=== PATIENT | female | born 1985 | race Caucasian/White ===

== ENCOUNTER 2017-10-21 11:49 | Emergency (ER) | payer OTHER ==
[2017-10-21 12:04] VITALS: BP 131/110
--- NOTE | 2017-10-21 12:35 | EDM.PDOC ---
ED HPI GENERAL MEDICAL PROBLEM - General Chief Complaint: Cardiovascular Problem Stated Complaint: HEART PALPITATIONS SENT BY [facility] Time Seen by Provider: 10/21/17 12:30 Source of Information: Reports: Patient History Limitations: Reports: No Limitations - History of Present Illness INITIAL COMMENTS - FREE TEXT/NARRATIVE: 32-year-old female presents the ED with recurrent palpitations over the last week. She is aware fluttering in her chest normal to the point that it almost hurts in her central chest. Does not make her cough or lightheaded or dizzy. Never had this before. She estimates that she is about 5-6 weeks gestation. Last menstrual period was around September 13. She will be 3 para 2 with 2 normal vaginal deliveries. Denies cough or sputum production. No recent illnesses with influenza etc. No known problems with her thyroid gland. Palpitations have occurred at rest as well as activity. Onset: Gradual (Off and on intermittently over the last week to 10 days.), Other (Palpitations were quite significant last and again this morning.) Duration: Day(s):, Intermittent, Waxing/Waning Location: Reports: Chest (Last week or more. Chest fluttering feeling) Quality: Reports: Ache Severity: Mild (Occasional mild central chest aching.) Improves with: Reports: None Worsens with: Reports: None Context: Reports: Other. Denies: Activity, Exercise, Lifting, Sick Contact, Trauma Associated Symptoms: Denies: Confusion, Chest Pain (First trimester estimated to be 5-6 weeks gestation.), Cough, cough w sputum, Diaphoresis, Fever /Chills, Headaches, Loss of Appetite, Malaise, Nausea/Vomiting, Rash, Seizure, Shortness of Breath, Syncope, Weakness Treatments [employer]IOR [employer]: Reports: Other (see below) (None.) - Related Data Allergies Allergy/AdvReac Type Severity Reaction Status Date / Time No Known Allergies Allergy Verified 10/21/17 12:04 Home Meds: Home Meds Vit No.130/Iron/FA [ Tablet] 1 each PO DAILY #100 tablet [Rx] Past Medical History - Past Health History Medical/Surgical History: Denies Medical/Surgical History : 3 Para: 2 LMP (Approximate): - Past Surgical History Other HEENT Surgeries/Procedures: wisdom teeth Social & Family History - Tobacco Use Smoking Status *Q: Never Smoker Second Hand Smoke Exposure: No - Recreational Drug Use Recreational Drug Use: No Drug Use in Last 12 Months: No - Living Situation & Occupation Living situation: Reports: , with Significant Other Occupation: Employed ED ROS GENERAL - Review of Systems Review Of Systems: See Below Constitutional: Reports: Fatigue. Denies: Fever, Chills, Malaise, Weakness, Decreased Appetite (Little fatigue due to ), Weight Loss HEENT: Reports: No Symptoms. Denies: Vision Change Respiratory: Reports: No Symptoms. Denies: Wheezing, Pleuritic Chest Pain, Cough, Sputum, Hemoptysis, Other Cardiovascular: Reports: Palpitations Endocrine: Reports: Fatigue (See history of present illness) GI/Abdominal: Reports: No Symptoms : Reports: Frequency Musculoskeletal: Reports: No Symptoms Skin: Reports: No Symptoms Neurological: Reports: No Symptoms Psychiatric: Reports: No Symptoms Hematologic/Lymphatic: Reports: No Symptoms Immunologic: Reports: No Symptoms ED EXAM, GENERAL - Physical Exam Exam: See Below Exam Limited By: No Limitations General Appearance: Alert, WD/WN, No Apparent Distress Eye Exam: Bilateral Eye: Normal Inspection Throat/Mouth: Normal Inspection, Normal Lips, Normal Teeth, Normal Gums, Normal Oropharynx. No: Dysphagia Neck: Normal Inspection, Supple, Non-Tender, Full Range of Motion. No: Carotid Bruit, Lymphadenopathy (L), Lymphadenopathy (R), Thyromegaly Respiratory/Chest: No Respiratory Distress, Lungs Clear, Normal Breath Sounds, No Accessory Muscle Use, Chest Non-Tender Cardiovascular: Regular Rate, Rhythm, No Edema, No Murmur, No Rub, Other (62 in sinus.) Peripheral Pulses: 3+: Carotid (L), Carotid (R), Posterior Tibial (L), Posterior Tibial (R), Dorsalis Pedis (L), Dorsalis Pedis (R) GI/Abdominal: Normal Bowel Sounds, Soft, Non-Tender, No Organomegaly, No Abnormal Bruit, No Mass, Pelvis Stable, Other (No surgical scars) Neurological: Alert, Oriented, CN II-XII Intact, Normal Cognition Psychiatric: Normal Affect, Normal Mood Skin Exam: Warm, Dry, Intact, Normal Color, No Rash EKG INTERPRETATION EKG Date: 10/21/17 Time: 12:00 Rhythm: NSR (NV interval is slightly shortened.) Rate (Beats/Min): 88 [place]: LAD-Left [place] Deviation (Mild left axis deviation of -17.) P-Wave: Present QRS: Other (Early R-wave transition. Questionable delta wave in lead V5.) ST-T: Other QT: Normal EKG Interpretation Comments: Abnormal ECG Baseline irregularity in V5 and V6 therefore they were not utilized for interpretation. Course - Vital Signs Last Recorded V/S: Last Vital Signs Temp 36.3 C 10/21/17 11:58 Pulse 80 10/21/17 11:58 Resp 18 10/21/17 11:58 BP 131/110 H 10/21/17 11:58 Pulse Ox 100 10/21/17 11:58 Orthostatic Blood Pressure [ 112/61 Sitting] Orthostatic Blood Pressure [ 108/65 Standing] Orthostatic Blood Pressure [ 105/58 Supine] - Orders/Labs/Meds Orders: Active Orders 24 hr Category Date Time Status Orthostatic Vital Signs [RC] ASDIRECTED Care 10/21/17 12:30 Active Chest 1V Frontal [CR] Stat Exams 10/21/17 12:35 Taken CBC WITH MANUAL DIFF [HEME] Stat Lab 10/21/17 12:30 Results Sodium Chloride 0.9% [Normal Saline] 1,000 ml Med 10/21/17 12:45 Active IV ASDIRECTED Medication Orders Sodium Chloride (Normal Saline) 1,000 mls @ 250 mls/hr IV ASDIRECTED NOEL Last Admin: 10/21/17 13:04 Dose: 250 mls/hr Labs: Laboratory Tests 10/21/17 10/21/17 10/21/17 Range/Units 12:30 12:30 12:30 WBC 8.67 (3.98-10.04) K/mm3 RBC 4.22 (3.98-5.22) M/mm3 Hgb 12.0 (11.2-15.7) gm/L Hct 36.1 (34.1-44.9) % MCV 85.5 (79.4-94.8) fl MCH 28.4 (25.6-32.2) pg MCHC 33.2 (32.2-35.5) g/dl RDW Std Deviation 39.8 (36.4-46.3) fL Plt Count 297 (182-369) K/mm3 MPV 10.1 (9.4-12.3) fl Sodium 140 (136-145) mEq/L Potassium 3.4 L (3.5-5.1) mEq/L Chloride 105 (98-107) mEq/L Carbon Dioxide 25 (21-32) mEq/L Anion Gap 13.4 (5-15) BUN 11 (7-18) mg/dL Creatinine 0.8 (0.55-1.02) mg/dL Est Cr Clr Drug Dosing 99.08 mL/min Estimated GFR (MDRD) > 60 (>60) mL/min BUN/Creatinine Ratio 13.8 L (14-18) Glucose 98 (74-106) mg/dL Calcium 8.7 (8.5-10.1) mg/dL Magnesium 1.9 (1.8-2.4) mg/dl Total Bilirubin 0.4 (0.2-1.0) mg/dL AST 16 (15-37) U/L ALT 27 (14-59) U/L Alkaline Phosphatase 83 (46-116) U/L CK-MB (CK-2) < 0.5 (0-3.6) ng/ml Troponin I < 0.017 (0.00-0.056) ng/mL Total Protein 7.3 (6.4-8.2) g/dl Albumin 3.4 (3.4-5.0) g/dl Globulin 3.9 gm/dL Albumin/Globulin Ratio 0.9 L (1-2) TSH 3rd Generation 2.527 (0.358-3.74) uIU/mL HCG, Qual Positive H (NEGATIVE) HCG, Quant mIU/mL 10/21/17 Range/Units 12:30 WBC (3.98-10.04) K/mm3 RBC (3.98-5.22) M/mm3 Hgb (11.2-15.7) gm/L Hct (34.1-44.9) % MCV (79.4-94.8) fl MCH (25.6-32.2) pg MCHC (32.2-35.5) g/dl RDW Std Deviation (36.4-46.3) fL Plt Count (182-369) K/mm3 MPV (9.4-12.3) fl Sodium (136-145) mEq/L Potassium (3.5-5.1) mEq/L Chloride (98-107) mEq/L Carbon Dioxide (21-32) mEq/L Anion Gap (5-15) BUN (7-18) mg/dL Creatinine (0.55-1.02) mg/dL Est Cr Clr Drug Dosing mL/min Estimated GFR (MDRD) (>60) mL/min BUN/Creatinine Ratio (14-18) Glucose (74-106) mg/dL Calcium (8.5-10.1) mg/dL Magnesium (1.8-2.4) mg/dl Total Bilirubin (0.2-1.0) mg/dL AST (15-37) U/L ALT (14-59) U/L Alkaline Phosphatase (46-116) U/L CK-MB (CK-2) (0-3.6) ng/ml Troponin I (0.00-0.056) ng/mL Total Protein (6.4-8.2) g/dl Albumin (3.4-5.0) g/dl Globulin gm/dL Albumin/Globulin Ratio (1-2) TSH 3rd Generation (0.358-3.74) uIU/mL HCG, Qual (NEGATIVE) HCG, Quant 3302.0 mIU/mL Meds: Medications Generic Name Dose Route Start Last Admin Trade Name Freq PRN Reason Stop Dose Admin Sodium Chloride 1,000 mls @ 250 mls/hr 10/21/17 12:45 10/21/17 13:04 Normal Saline IV 250 mls/hr ASDIRECTED NOEL Administration - Radiology Interpretation Free Text/Narrative:: 32-year-old female presents the ED at the request of [facility]. She is complaining of palpitations off and on for the better part of a week. Particularly bad last night and again this morning. No associated dizziness or lightheadedness. She is aware fluttering feeling in her anterior chest. Almost to the point that it starts to hurt a bit. No real short of breath. No coughing. Known to be 5-6 weeks by home testing. Last trimester. Was relatively the 14th. She does not believe she's been vomiting depleted. She's had no nausea vomiting in the so far has been uneventful gravid 3 para 2. 2 previous normal vaginal deliveries. One medication she is taking is vitamin and folic acid daily. Orthostatic BPs will be done. Routine labs to be collected. - Re-Assessments/Exams Free Text/Narrative Re-Assessment/Exam: 10/21/17 13:24 chest x-ray one view carried out with pelvic and abdominal protection with lead apron. It is within normal limits. ECG shows sinus rhythm at 80 per minute with early R-wave transition pattern. The NV interval is mildly shortened. I question whether or not there might be a delta wave and V5 but at present raising the suspicion of possible underlying Bruno-Parkinson- White syndrome. 10/21/17 14:00 Labs reveal a normal white count at 8.67. Hemoglobin is 12.0 with hematocrit of 36.1. MCV normal at 85.5. Platelet count normal 297,000. Sodium 140 with potassium low-normal at 3.4. Ritalin 05 bicarbonate is 25 and a gap is 13.4 BUN is 11. Creatinine is 0.8. Glucose was 98. Calcium is 8.7. Magnesium normal at 1.9.. Total bilirubin is 0.4. Liver function otherwise normal. Cardiac markers are normal as well. TSH is 2.5-7 which is normal. HCG is positive with a quantitative beta-hCG of 3302.. This correlates with an early first trimester . Departure - Departure Time of Disposition: 14:06 Disposition: Home, Self-Care 01 Condition: Fair Clinical Impression: Heart palpitations Referrals: [facility] [Primary Care Provider] - Forms: ED Department Discharge Additional Instructions: Evaluation in the emergency him today in regards to palpitations felt particularly over the last week precipitated extensive evaluation and no abnormalities identified on lab work or ECG or chest x-ray. These palpitations appear to be benign but we were not able to capture any abnormal rhythms monitoring in the ED for over an hour and a half. Most palpitations are benign meaning that these are extra beats coming from the upper chambers of the heart. The reason for this occurring in you at this time is unclear. Suggest follow-up with personal care physician if the palpitations continue over the next week or 10 days then a Holter monitor to monitor her continuously for 3-4 day period of time would be useful to see if we can establish where these extra skips her beats or coming from. Discussed they usually are totally benign and you should consider them a nuisance versus something seriously wrong. A copy of your chart will be provided to you to give to your provider in [place]. - My Orders Last 24 Hours: My Active Orders 10/21/17 12:30 Orthostatic Vital Signs [RC] ASDIRECTED CBC WITH MANUAL DIFF [HEME] Stat 10/21/17 12:35 Chest 1V Frontal [CR] Stat 10/21/17 12:45 Sodium Chloride 0.9% [Normal Saline] 1,000 ml IV ASDIRECTED - Assessment/Plan Last 24 Hours: My Active Orders 10/21/17 12:30 Orthostatic Vital Signs [RC] ASDIRECTED CBC WITH MANUAL DIFF [HEME] Stat 10/21/17 12:35 Chest 1V Frontal [CR] Stat 10/21/17 12:45 Sodium Chloride 0.9% [Normal Saline] 1,000 ml IV ASDIRECTED
[2017-10-21] MEDS ORDERED: Sodium Chloride 0.9% 1,000 ML IV SCH (12:45)
--- NOTE | 2017-10-21 15:44 | CR ---
Chest: Portable view of the chest was obtained. Comparison: No prior chest x-ray. Heart size and mediastinum are normal. Lungs are clear. Minimal scoliosis is noted within the spine. Impression: 1. Nothing acute is identified on portable chest x-ray. Diagnostic code #1
== END 2017-10-21 14:37 | disposition home or self-care (01) ==
LOC: JD.ED 11:49
DX: R00.2 Palpitations (principal)
CPT/HCPCS: 36415; 71045; 80053; 82553; 83735; 84443; 84484; 84702; 84703; 85025; J7040; 93010; 96360; 99284-25; 99285-25

== ENCOUNTER 2023-04-01 22:39 | Emergency (ER) | payer OTHER ==
[2023-04-01 23:54] LABS: BASOPHILS ABSOLUTE AUTO 0.1 K/mm3 (0.0-0.2); HEMATOCRIT 37.7 % (37.0-47.0); HEMOGLOBIN 13.1 gm/dl (12.0-16.0); MEAN CORPUSCULAR HEMOGLOBIN 29.8 pg (28.0-32.0); MEAN CORPUSCULAR HGB CONC 34.7 g/dl (32.0-36.0); MEAN CORPUSCULAR VOLUME 85.7 fl (83.0-99.0); MEAN PLATELET VOLUME 9.7 fl (9.4-12.3); MONOCYTES ABSOLUTE AUTO 0.6 K/mm3 (0.0-0.8); PLATELET COUNT,PLT 304 K/mm3 (150-400); WHITE BLOOD CELL COUNT,WBC 14.43 K/mm3 (3.9-11.3)
[2023-04-01 23:58] LABS: INR 1.18; PROTHROMBIN TIME 12.5 SECONDS (9.7-12.0)
[2023-04-02] LABS: PTT,PARTIAL THROMBOPLSTIN TIME 28.2 SECONDS (21.7-31.4)
[2023-04-02 00:03] LABS: D-DIMER QUANTITATIVE 0.65 mg/L (0.19-0.50)
[2023-04-02 00:10] LABS: A/G RATIO 0.9 (1-2); ALBUMIN 3.8 g/dl (3.4-5.0); ANION GAP 17.6 (5-15); BILIRUBIN TOTAL 0.6 mg/dL (0.2-1.0); BUN/CREATININE RATIO 12.2 (14-18); CALCIUM 9.2 mg/dL (8.5-10.1); CREATININE 0.9 mg/dL (0.55-1.02); EST CRCL DRUG DOSING (CG) 84.03 mL/min; MAGNESIUM 1.7 mg/dL (1.8-2.4); POTASSIUM,K 3.6 mEq/L (3.5-5.1)
[2023-04-02 01:01] LABS: LYMPHOCYTES PERCENT AUTO 9.3 % (24.0-44.0); MONOCYTES PERCENT AUTO 4.5 % (0.0-8.0); NEUTROPHILS PERCENT AUTO 85.3 % (41.0-71.0); SLIDE REVIEW ABNORMAL SMEAR
[2023-04-02 01:03] LABS: BASOPHILS PERCENT AUTO 0.4 % (0.0-1.0); IMMATURE GRAN PERCENT AUTO 0.5 % (0.0-0.4); LYMPHOCYTES ABSOLUTE AUTO 1.3 K/mm3 (1.0-4.8); NEUTROPHILS ABSOLUTE AUTO 12.6 K/mm3 (1.8-7.7)
[2023-04-02 01:04] LABS: IMMATURE GRAN ABSOLUTE AUTO 0.07 K/mm3 (0.00-0.05)
[2023-04-02 02:57] VITALS: BP 115/71; PULSE 80
== END 2023-04-02 03:07 | disposition home or self-care (01) ==
LOC: JD.ED 22:39
DX: R07.89 Other chest pain (principal); R00.2 Palpitations; E66.9 Obesity, unspecified; Z68.33 Body mass index [BMI] 33.0-33.9, adult
CPT/HCPCS: 36415; 71046; 71046-26; 80053; 83735; 83880; 84484; 85025; 85379; 85610; 85730; 93005; 93010; 93246; 99283; 99285